=== PATIENT | male | born 1955 | race Caucasian/White ===

== ENCOUNTER 2018-11-29 19:10 | Emergency (ER) | payer MEDICAID ==
[2018-11-29] MEDS: SOD CHLORIDE 0.9% 1,000 ML IV (19:41)
[2018-11-29] MEDS: KETOROLAC 15 MG INJ IV (19:42)
== END 2018-11-29 20:59 | disposition home or self-care (01) ==
LOC: E/R 19:10
DX: R10.84 Generalized abdominal pain (principal); I10 Essential (primary) hypertension
CPT/HCPCS: 36415; 74176; 80053; 83690; 85025; 96361; 96374; 99285-25